=== PATIENT | female | born 1950 | race Caucasian/White ===

== ENCOUNTER 2016-12-06 16:13 | Emergency (ER) | payer OTHER, MEDICARE ==
[~2016-12-06] VITALS: Ht 167.6 cm; Wt 90.7 kg
[~2016-12-06 16:13] MED LIST: OXYCODON-ACETAMINOPH
--- NOTE | 2016-12-06 17:38 | ED UPPER/LOWER EXTREMITY COMPL ---
History of Present Illness General Chief Complaint: Lower Extremity Injury Stated Complaint: "I TWISTED IT" RIGHT ANKLE Source: patient Exam Limitations: no limitations Vital Signs & Intake/Output Vital Signs & Intake/Output Vital Signs Date Time Temp Pulse Resp B/P Pulse O2 O2 Flow FiO2 Ox Delivery Rate 12/06 185 98.3 89 16 124/74 100 Room Air 12/06 185 99 Room Air 12/06 1623 96.5 108 20 134/81 96 Room Air Allergies Coded Allergies: MDX - Oxaprozin (From DAYPRO) (Intermediate, HIVES 01/16/12) MDX - Amoxicillin (AMOXICILLIN) (HIVES 01/16/12) Reconcile Medications [OXYCODON-ACETAMINOPH] (Reported) Triage Note: PT TO ED C/O RIGHT ANKLE PAIN. STATES "I MISSED THE LAST STEP COMING DOWN STAIRS". HAPPENED 1400 TODAY. PAIN IS WORSE WITH WEIGHT BEARING. STATES "I CAN'T FLEX THE FOOT". 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 DECLINING PAIN MEDS IN TRIAGE. Triage Nurses Notes Reviewed? yes Onset: Abrupt Duration: constant Timing: single episode today Severity: severe Severity Numbers: 7 HPI: Patient is a 66-year-old female who presents emergency his afternoon patient was ambulating down her steps where she twisted her right ankle on the last step resulting acute onset of localized right lateral ankle pain and swelling. Patient states that ankle movements and walking makes worse. Patient has been prescribed for her chronic back pain Percocet with mild relief of symptoms. Denies any knee pain or foot pain. Patient did drive to the emergency room she has an assisted cane for fall prevention (LUX SALAZAR) Past History Travel History Traveled to [place] past 21 day No Medical History Any Pertinent Medical History? see below for history EENT: cataracts Cardiovascular: hypertension, hyperlipidemia Musculoskeletal: chronic back pain Endocrine: hypothyroidism Surgical History Surgical History: non-contributory Psychosocial History What is your primary language Japanese Tobacco Use: Quit >30 days ago ETOH Use: denies use Illicit Drug Use: denies illicit drug use Family History Hx Contributory? No (LUX SALAZAR) Review of Systems Review of Systems Constitutional: Reports: no symptoms. EENTM: Reports: no symptoms. Respiratory: Reports: no symptoms. Cardiovascular: Reports: no symptoms. Gastrointestinal/Abdominal: Reports: no symptoms. Genitourinary: Reports: no symptoms. Musculoskeletal: Reports: see HPI, joint pain, joint swelling. Skin: Reports: no symptoms. Neurological/Psychological: Reports: no symptoms. Hematologic/Endocrine: Reports: no symptoms. Immunological: Reports: no symptoms. All Other Systems: Reviewed and Negative (LUX SALAZAR) Physical Exam Physical Exam General Appearance: no apparent distress, alert, comfortable Head: atraumatic Neurologic/Tendon: normal sensation, normal motor functions, normal tendon functions, responds to pain, no evidence tendon injury, no pulse deficit Skin: intact, normal color, warm/dry Comments: Well-developed well-nourished no apparent distress. HEENT: Atraumatic, extraocular motion intact Neck: Supple, no lymphadenopathy Back: Nontender Respiratory: No respiratory distress Extremities: Right knee normal section nontender Right ankle noted lateral malleoli point tenderness and swelling decreased active range of motion noted Right foot normal inspection nontender no swelling Right lower extremity dermatomes intact pedal pulse +2 Neuro: Alert and oriented x3 Psych: Mood affect normal, normal memory normal judgment. (LUX SALAZAR) Progress Differential Diagnosis: arterial insufficiency, compartment syndrome, contusion, dislocation, DVT, fracture, gout, septic arthritis, sprain, tendon injury Plan of Care: Orders Procedure Date/time Status XRY-FOOT COMPLETE, RIGHT 12/06 1628 Active XRY-ANKLE 3 OR MORE VIEWS R 12/06 1628 Active Patient has concern of an avulsion fracture to the distal right malleolus. Posterior splint was applied Patient stated that she has a walker at home patient was strongly advised to follow up with orthopedic doctor. (LUX SALAZAR) Diagnostic Imaging: Viewed by Me: Radiology Read. Radiology Impression: fracture Comments: PATIENT: MORAIMA POLLACK PRESENT AGE: 66 PATIENT ACCOUNT NO: [id number] : 51 LOCATION: [facility] ORDERING PHYSICIAN: SWAPNA ARMSTRONG DO SERVICE DATE: 12/06/16 EXAM TYPE: RAD - XRY-ANKLE 3 OR MORE VIEWS R; XRY-FOOT COMPLETE, R EXAMINATION: 3 VIEWS OF THE RIGHT ANKLE AND 3 VIEWS OF THE RIGHT FOOT CLINICAL INFORMATION: Pain and swelling. COMPARISON: Right foot and ankle radiographs April 22, 2014. FINDINGS: There is soft tissue swelling overlying the lateral malleolus. There is a small avulsion fracture off the distal tip of the fibula best seen on the frontal radiograph. No additional fractures are identified within the foot or ankle. The ankle mortise is intact. There are hypertrophic spurs along the Achilles and plantar aponeurosis insertions of the calcaneus. No radiopaque foreign bodies. IMPRESSION: There is a small avulsion fracture off the distal tip of the fibula with associated soft tissue swelling overlying the lateral malleolus. No additional fractures are identified within the right foot or ankle. (LUX SALAZAR) Departure Departure Disposition: HOME OR SELF CARE Condition: Stable Clinical Impression Primary Impression: Avulsion fracture of distal fibula Referrals: LUCIAN BROUSSARD,EUNICE Justin (PCP/Family) LORENZO BROUSSARD,BRITT [place] Additional Instructions: As discussed begin to elevate YOUR foot for swelling. Continue to use the splint and the Alexander wrap THAT has been applied to YOU on in the emergency room at all times until you follow up with the orthopedic doctor. Please call Dr. VENTURA tomorrow to make an appointment for further evaluation treatment. Always use the walker that you have at home for fall prevention and try not to put too much weight on your foot. If symptoms worsen return to emergency room continue home medications previously PRESCRIBED especially your pain medication Departure Forms: Customer Survey General Discharge Information (LUX SALAZAR) PA/PHOTOGRAPHER Co-Sign Statement Statement: ED Attending supervision documentation- [X] I saw and evaluated the patient. I have also reviewed all the pertinent lab results and diagnostic results. I agree with the findings and the plan of care as documented in the PA's/PHOTOGRAPHER's documentation. [] I have reviewed the ED Record and agree with the PA's/PHOTOGRAPHER's documentation. [] Additions or exceptions (if any) to the PAs/PHOTOGRAPHER's note and plan are summarized below: [] (SWAPNA ARMSTRONG DO) Procedures Splinting Location: RIGHT ANKLE Manual Alignment Performed: No Hand-Made Type: orthoglass Splint: POSTERIOR RIGHT LEG Splint Applied By: splint applied by me Pre-Proc Neuro Vasc Exam: normal Post-Proc Neuro Vasc Exam: normal (LUX SALAZAR)
--- NOTE | 2016-12-06 17:45 | RADIOLOGY REPORT ---
EXAMINATION: 3 VIEWS OF THE RIGHT ANKLE AND 3 VIEWS OF THE RIGHT FOOT CLINICAL INFORMATION: Pain and swelling. COMPARISON: Right foot and ankle radiographs April 22, 2014. FINDINGS: There is soft tissue swelling overlying the lateral malleolus. There is a small avulsion fracture off the distal tip of the fibula best seen on the frontal radiograph. No additional fractures are identified within the foot or ankle. The ankle mortise is intact. There are hypertrophic spurs along the Achilles and plantar aponeurosis insertions of the calcaneus. No radiopaque foreign bodies. IMPRESSION: There is a small avulsion fracture off the distal tip of the fibula with associated soft tissue swelling overlying the lateral malleolus. No additional fractures are identified within the right foot or ankle.
[2016-12-06 18:52] VITALS: BP 124/74
== END 2016-12-06 19:06 ==
LOC: ERH 16:13
DX: S82.831A Other fracture of upper and lower end of right fibula, initial encounter for closed fracture (principal); X58.XXXA Exposure to other specified factors, initial encounter
CPT/HCPCS: 73610-RT; 73630-RT